=== PATIENT | female | born 1960 | race Caucasian/White ===

== ENCOUNTER → 2023-06-13 | Outpatient (CLI) | payer MEDICARE ==
--- NOTE | 2023-06-13 07:45 | US ---
EXAMINATION TYPE: US abdomen complete DATE OF EXAM: 06/13/2023 COMPARISON: NONE CLINICAL INDICATION: Female, 63 years old with history of R10.11 RIGHT UPPER QUADRANT PAIN; right colton ed pain x 1 week, no fever, no N/V, loss of appetite TECHNIQUE: Multiple sonographic images of the abdomen are obtained. FINDINGS: EXAM MEASUREMENTS: Liver Length: 149 cm Gallbladder Wall: 0.2 cm CBD: 0.5 cm Spleen: 11.2 cm Right Kidney: 10.0 x 4.0 x 3.8 cm Left Kidney: 9.8 x 3.7 x 5.0 cm Pancreas: wnl Liver: wnl Gallbladder: wnl Evidence for sonographic Bledsoe's sign: no CBD: wnl Spleen: wnl Right Kidney: wnl Left Kidney: wnl Upper IVC: wnl Abd Aorta: wnl The liver is homogenous. The intrahepatic portion of the IVC and proximal abdominal aorta are within normal limits. There is no evidence of cholelithiasis. Common bile duct is unremarkable. The visu alized portions of the pancreas are homogenous. The spleen is unremarkable. Kidneys are symmetric a nd free of hydronephrosis. No renal lesions are seen. IMPRESSION: No evidence for acute process.
== END | disposition home or self-care (01) ==
LOC: RADUSWWP 06:52
PROVIDERS: ATTEND Family Medicine
DX: R10.11 Right upper quadrant pain (principal); R63.0 Anorexia
CPT/HCPCS: 76700

== ENCOUNTER → 2023-08-16 | Outpatient (CLI) | payer MEDICARE ==
--- NOTE | 2023-08-17 09:15 | MM ---
Reason for Exam: Screening (asymptomatic). Last mammogram was performed 1 year(s) and 4 month(s) ago. Patient History: Menarche at age 10. Patient has no children. Postmenopausal. 1996, Stereotactic Core Biopsy on the Left side. Sister had breast cancer at or over age 50. Risk Values: Alyssa 5 year model risk: 3.8%. NCI Lifetime model risk: 14.0%. Prior Study Comparison: 09/19/2017 Bilateral Screening Mammogram, Unknown. 01/09/2021 Bilateral Screening Mammogram, Unknown. 04/20/2022 Bilateral Screening Mammogram, Unknown. Tissue Density: The breast tissue is heterogeneously dense. This may lower the sensitivity of mammography. Findings: Analyzed By CAD. No dominant mass or architectural distortion. There are loosely grouped calcifications in the central upper aspect of the left breast. Increased in number from prior exam. Additional benign-appearing calcifications. Surgical clip in the left upper breast. Overall Assessment: Incomplete: need additional imaging evaluation, BI-RAD 0 Management: Special View Mammogram of the left breast. . Patient should continue monthly self-breast exams. A clinical breast exam by your physician is recommended on an annual basis. This exam should not preclude additional follow-up of suspicious palpable abnormalities. Note on Alyssa scores and lifetime risk: 1. A Alyssa score greater than 3% is considered moderate risk. If this is the case, consider specialist referral to assess eligibility for a risk reducing agent. 2. If overall lifetime risk for the development of breast cancer is 20% or higher, the patient may qualify for future screening with alternating mammogram and breast MRI. Electronically signed and approved by: Luis Manuel Garcia M.D. Radiologis
== END | disposition home or self-care (01) ==
LOC: RADMAMWWP 08:11
PROVIDERS: ATTEND Family Medicine
DX: Z12.31 Encounter for screening mammogram for malignant neoplasm of breast (principal); Z80.3 Family history of malignant neoplasm of breast; Z78.0 Asymptomatic menopausal state
CPT/HCPCS: 77063; 77067

== ENCOUNTER → 2023-08-19 | Outpatient (CLI) | payer MEDICARE ==
--- NOTE | 2023-08-19 08:16 | MM ---
Reason for Exam: Additional evaluation requested from prior study. Last screening mammogram was performed less than 1 month ago. Patient History: Menarche at age 10. Patient has no children. Postmenopausal. 1996, Stereotactic Core Biopsy on the Left side. Sister had breast cancer at or over age 50. Risk Values: Alyssa 5 year model risk: 3.8%. NCI Lifetime model risk: 14.0%. Prior Study Comparison: 01/09/2021 Bilateral Screening Mammogram, Unknown. 04/20/2022 Bilateral Screening Mammogram, Unknown. 08/16/2023 Bilateral MG 3D screening mammo w/cad, [facility]. Tissue Density: Left: The breast tissue is heterogeneously dense. This may lower the sensitivity of mammography. Findings: Analyzed By CAD. Increasing indeterminate calcifications upper central left breast. Stereotactic core biopsy is recommended. Overall Assessment: Suspicious, BI-RAD 4 Management: Stereotactic Core Biopsy of the left breast. . Results were given to the patient verbally at the time of exam. Patient should continue monthly self-breast exams. A clinical breast exam by your physician is recommended on an annual basis. This exam should not preclude additional follow-up of suspicious palpable abnormalities. Note on Alyssa scores and lifetime risk: 1. A Alyssa score greater than 3% is considered moderate risk. If this is the case, consider specialist referral to assess eligibility for a risk reducing agent. 2. If overall lifetime risk for the development of breast cancer is 20% or higher, the patient may qualify for future screening with alternating mammogram and breast MRI. Electronically signed and approved by: Juan Francisco Rahman M.D. Radiologis
== END | disposition home or self-care (01) ==
LOC: RADMAMWWP 07:52
PROVIDERS: ATTEND Family Medicine
DX: R92.8 Other abnormal and inconclusive findings on diagnostic imaging of breast (principal); Z78.0 Asymptomatic menopausal state; Z80.3 Family history of malignant neoplasm of breast
CPT/HCPCS: 77065; G0279; 77061

== ENCOUNTER → 2023-09-23 | Day surgery (SDC) | payer MEDICARE ==
[~2023-09-23] MED LIST: ALPRAZolam 0.5 MG TAB PO PRN
[2023-09-23] MEDS: ALPRAZolam 0.25 MG TAB PO PRN (07:43)
[2023-09-23 07:58] VITALS: RESP 16
--- NOTE | 2023-09-23 08:05 | P.GSHP ---
History of Present Illness H&P Date: 09/23/23 Chief Complaint: abnormal left breast mammogram Narda is a 63 year old female seen in consultation for Dr. Lai with an abnormal left breast mammogram. She underwent a bilateral mammogram on 08-16-23, this led to a left breast daignostic mammogram on 08-19-23. The left breast mammogram showed calcifications of concern in the upper central breast. This was personally reviewed with the radiologist. This was found on a routine mammogram. She does not feel any lumps masses or nodules of concern in either breast. She did have a left breast stereotactic biopsy approximately 20 years ago which was benign. She has never had any open surgery on her breast. She is not complaining of any recent nipple discharge skin changes. She is not complaining of any recent trauma or infection in the breast. Caffeine: 2-3- cups coffee/day nicotine: none chocolate; rare BCP: used about 40 year ago for endometriosis for 18 months hormones: none Family History: mother: of peritoneal cancer father: smoker lung cancer sister: breast cancer Hormonal History: menarche: 10 G0 menopause: 48 Surgical History: 1/2 of each ovary removed in 1987 for endometriosis lipoma form hip Medical History: stress cardiomyopathy 2019; heart repaired itself Social History: nicotine: none alcohol: none drugs: none - Constitutional Constitutional: Reports sweats, Denies chills, Denies fever - EENT Eyes: denies blurred vision, denies pain Ears: deny: decreased hearing, tinnitus Ears, nose, mouth and throat: Denies headache, Denies sore throat - Breasts Breasts: bilateral: as per HPI - Cardiovascular Cardiovascular: Reports as per HPI - Respiratory Respiratory: Denies cough, Denies 7 - Gastrointestinal Gastrointestinal: Denies abdominal pain, Denies diarrhea, Denies nausea, Denies vomiting - Genitourinary (Female) Genitourinary: Denies dysuria, Denies hematuria - Menstruation Menstruation: Reports postmenopausal - Musculoskeletal Musculoskeletal: Denies myalgias - Integumentary Integumentary: Denies pruritus, Denies rash - Neurological Neurological: Denies numbness, Denies weakness - Psychiatric Psychiatric: Reports anxiety, Denies depression - Endocrine Endocrine: Denies fatigue, Denies weight change - Hematologic/Lymphatic Comment: none - Allergic/Immunologic Allergic/Immunologic: Reports seasonal allergies Past Medical History Past Medical History: No Reported History History of Any Multi-Drug Resistant Organisms: None Reported Past Surgical History: No Surgical Hx Reported Past Anesthesia/Blood Transfusion Reactions: No Reported Reaction Past Psychological History: No Psychological Hx Reported Smoking Status: Former smoker Past Alcohol Use History: None Reported Past Drug Use History: None Reported Medications and Allergies Home Medications Medication Instructions Recorded Confirmed Type Escitalopram [Lexapro] 10 mg PO DAILY 08/19/23 09/23/23 History Metoprolol Succinate [Metoprolol 25 mg PO BID 08/19/23 09/23/23 History Succinate ER] dilTIAZem HCL 30 mg PO TID 08/19/23 09/23/23 History Allergies Allergy/AdvReac Type Severity Reaction Status Date / Time codeine AdvReac Vomiting Verified 09/23/23 07:20 Surgical - Exam Vital Signs Temp Pulse Resp BP 97.9 F 76 16 147/69 09/23/23 07:28 09/23/23 07:28 09/23/23 07:28 09/23/23 07:28 - General no distress - Eyes normal ocular movement - Neck trachea midline - Respiratory normal respiratory effort, clear to auscultation - Cardiovascular Rhythm: regular Heart Sounds: normal: S1, S2 - Abdomen Abdomen: soft, non tender, no guarding, no rigid, no rebound - Integumentary normal turgor - Neurologic no disoriented, no combative - Musculoskeletal normal gait, normal posture - Psychiatric oriented to time, oriented to person, oriented to place, speech is normal, me janak intact Breast Exam: BRA: 36C Inspection: Bilateral grade 2 ptosis Palpation: Right breast: Multi positional exam fibrocystic changes no dominant masses or nodules of concern Right axilla: No adenopathy of concern Left breast: Multi positional exam, particular attention to the upper central area does not reveal any dominant masses or nodules of concern Left axilla: No adenopathy of concern Results Mammogram results reviewed Assessment and Plan Assessment: Impression: Fibrocystic breast changes Microcalcifications of concern left breast upper central portion Plan: Stereotactic core biopsy left breast Risk and benefits of the procedure discussed with the patient. Risks include but are not limited to bleeding, infection, reaction to the anesthetic. If the biopsy specimen were to be discordant then further tissue acquisition may be necessary. If the lesion is unable to be targeted it may not be possible to do a stereotactic core biopsy in which case may be necessary to do a needle localization and resection in the operating room. The patient understands and wishes to proceed. CC: Dr. Alvarado
[2023-09-23 09:47] VITALS: BP 146/84; PULSE 66; TEMP 98.1
--- NOTE | 2023-09-26 12:40 | MM ---
Date of Procedure: 09/23/23 Preoperative Diagnosis: Microcalcifications of concern left breast/2 sites upper mid breast, and more medial mid breast Postoperative Diagnosis: Same Procedure(s) Performed: Stereotactic core biopsy 2 sites left breast upper mid and lateral breast Anesthesia: local Surgeon: Bela Zuniga Pathology: other (Breast tissue sent from lateral breast, Top-gold marker left microcalcifications of concern in specimen, breast tissue sent from more medial breast lesion: Bowtie clip left, microcalcifications of concern in specimen) Condition: stable Disposition: same day Indications for Procedure: Microcalcifications of concern 2 sites in the left breast Operative Findings: Radiograph of specimen reveals microcalcifications of concern in both the medial and the lateral tissue sampled Description of Procedure: The patient's radiograph was reviewed personally preoperatively with Dr. Pedraza from radiology. Multiple areas of calcification were noted but to specifically were more worrisome. Both were in the upper aspect of the breast 1 more medial and 1 more lateral. This was discussed with the patient. Risk and benefits of the procedure were discussed with the patient. The patient wished to proceed with stereotactic core biopsy of both sites. The patient was brought to the stereotactic core biopsy room. She was positioned in the upright chair. A underwriter film was obtained. The calcifications which were more lateral were identified. These were in the upper lateral aspect of the breast. A CC from above approach was utilized. The breast was prepped using Betadine. The calcifications were targeted. 14 cc of 1% lidocaine were used to anesthetize the area of concern. A 9 gauge vacuum-assisted core rotating biopsy needle was driven to the correct coordinates. A prefire film was obtained. The needle was noted to be in the correct location. The needle was fired. A post fire film was obtained. The needle was noted to be in the correct location. 13 core biopsy specimens were obtained. Radiograph of the specimen revealed that the calcifications of concern had been adequately Sampled. A secure ana Top-Hat clip was placed. The patient was repositioned. The more medial calcifications were targeted. A underwriter film was obtained. The lesion was noted to be in the [place] window. The lesion was targeted. The breast was prepped using chlorhexidine. 15 cc of 1% lidocaine were used to anesthetize the area of concern. A 9 gauge vacuum- assisted core rotating biopsy needle was driven to the correct coordinates. A prefire film was obtained. The needle was noted to be in the correct location. The needle was fired. A post fire film was obtained. The needle was noted to be in the correct location. 12 core biopsy specimens were obtained. Radiograph of the specimen revealed that the calcifications of concern have been adequately sampled. A Tri Ana bowtie clip was placed. Radiograph revealed that the secure ana Top-Hat clip and the TriMark bowtie clip were in the correct location. The specimen was sent to pathology. The patient will follow-up with Dr. Aguilar in 1 week. The patient tolerated the procedure in stable condition. 1. Secure ana Top-Hat clip in the more lateral location upper lateral breast 2. TriMark bowtie clip in the more medial upper mid breast MTDD
== END ==
LOC: RADMAMWWP 07:11
PROVIDERS: ATTEND Surgery
DX: D05.12 Intraductal carcinoma in situ of left breast (principal); N60.12 Diffuse cystic mastopathy of left breast; N60.22 Fibroadenosis of left breast; Z87.891 Personal history of nicotine dependence; Z88.5 Allergy status to narcotic agent; Z79.899 Other long term (current) drug therapy
CPT/HCPCS: 88305; 19081; 19082; A4648; J2001

== ENCOUNTER → 2023-09-23 | Day surgery (SDC) | payer MEDICARE ==
[2023-09-23 07:58] VITALS: BP 122/76; PULSE 64; RESP 16; TEMP 97.6
--- NOTE | 2023-09-23 14:01 | P.PCN ---
Date of Procedure: 09/23/23 Preoperative Diagnosis: Microcalcifications of concern left breast/2 sites upper mid breast, and more medial mid breast Postoperative Diagnosis: Same Procedure(s) Performed: Stereotactic core biopsy 2 sites left breast upper mid and lateral breast Anesthesia: local Surgeon: Bela Zuniga Pathology: other (Breast tissue sent from lateral breast, Top-sustain engineer left microcalcifications of concern in specimen, breast tissue sent from more medial breast lesion: Bowtie clip left, microcalcifications of concern in specimen) Condition: stable Disposition: same day Indications for Procedure: Microcalcifications of concern 2 sites in the left breast Operative Findings: Radiograph of specimen reveals microcalcifications of concern in both the medial and the lateral tissue sampled Description of Procedure: The patient's radiograph was reviewed personally preoperatively with Dr. Pedraza from radiology. Multiple areas of calcification were noted but to specifically were more worrisome. Both were in the upper aspect of the breast 1 more medial and 1 more lateral. This was discussed with the patient. Risk and benefits of the procedure were discussed with the patient. The patient wished to proceed with stereotactic core biopsy of both sites. The patient was brought to the stereotactic core biopsy room. She was positioned in the upright chair. A public transit specialist film was obtained. The calcifications which were more lateral were identified. These were in the upper lateral aspect of the breast. A CC from above approach was utilized. The breast was prepped using Betadine. The calcifications were targeted. 14 cc of 1% lidocaine were used to anesthetize the area of concern. A 9 gauge vacuum-assisted core rotating biopsy needle was driven to the correct coordinates. A prefire film was obtained. The needle was noted to be in the correct location. The needle was fired. A post fire film was obtained. The needle was noted to be in the correct location. 13 core biopsy specimens were obtained. Radiograph of the specimen revealed that the calcifications of concern had been adequately Sampled. A secure ana Top-Hat clip was placed. The patient was repositioned. The more medial calcifications were targeted. A public transit specialist film was obtained. The lesion was noted to be in the [place] window. The lesion was targeted. The breast was prepped using chlorhexidine. 15 cc of 1% lidocaine were used to anesthetize the area of concern. A 9 gauge vacuum- assisted core rotating biopsy needle was driven to the correct coordinates. A prefire film was obtained. The needle was noted to be in the correct location. The needle was fired. A post fire film was obtained. The needle was noted to be in the correct location. 12 core biopsy specimens were obtained. Radiograph of the specimen revealed that the calcifications of concern have been adequately sampled. A Tri Ana bowtie clip was placed. Radiograph revealed that the secure ana Top-Hat clip and the TriMark bowtie clip were in the correct location. The specimen was sent to pathology. The patient will follow-up with Dr. Aguilar in 1 week. The patient tolerated the procedure in stable condition. 1. Secure ana Top-Hat clip in the more lateral location upper lateral breast 2. TriMark bowtie clip in the more medial upper mid breast CC: Dr. Lai
== END ==
LOC: WWCWWP 07:06
PROVIDERS: ATTEND Surgery
DX: Z53.8 Procedure and treatment not carried out for other reasons (principal); R92.8 Other abnormal and inconclusive findings on diagnostic imaging of breast
CPT/HCPCS: 19082

== ENCOUNTER → 2023-09-29 | Outpatient (CLI) | payer MEDICARE ==
[2023-09-29 13:55] VITALS: BP 124/79; PULSE 61; RESP 15; TEMP 98.5
--- NOTE | 2023-09-29 14:31 | P.PN ---
Progress Note - Text Progress Note Date: 09/29/23 Patient is status post stereotactic core biopsy of 2 sites of concern in the left breast. 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 The patient tolerated the procedure without difficulty. The patient's radiographic been reviewed with Dr. Gilliland and it is felt that the Top-Hat and TriMark bowtie clips were in the correct locations. More medial calcifications were the TriMark site be in the more lateral where the secure ana site A. Examination: Breast biopsy site clean and dry Impression: Patient doing well postprocedure I have had a discussion with the patient and her sister regarding the implications of atypical ductal hyperplasia and DCIS. They understand that surgical localization resection is recommended for this site A. She also understands that the LCIS simply implies high risk however secondary to the fact that he already has known atypical ductal hyperplasia in 2 sites of LCIS she would like to have the site resected as well. I discussed that this may not be necessary but the LCIS shows increased risk bilaterally for invasive ductal carcinoma. She also is considering bilateral mastectomy. She would like to go flat and not have reconstruction. Of concern is the fact that she was between [place] and [place] and is very busy. Plan: The patient will call us with her decision as to what she would like to have done. CC: Dr. Lai
== END ==
LOC: WWCWWP 12:51
PROVIDERS: ATTEND Surgery
DX: Z04.89 Encounter for examination and observation for other specified reasons (principal); R92.8 Other abnormal and inconclusive findings on diagnostic imaging of breast; R92.1 Mammographic calcification found on diagnostic imaging of breast; N62 Hypertrophy of breast; D05.12 Intraductal carcinoma in situ of left breast; Z88.5 Allergy status to narcotic agent